=== PATIENT | female | born 1985 | race Caucasian/White ===

== ENCOUNTER 2018-09-07 10:00 | Emergency (ER) | payer MEDICAID ==
[~2018-09-07] VITALS: Ht 175.3 cm; Wt 77.3 kg
[~2018-09-07 10:00] MED LIST: ACET-3068 PO; CLIN300C97 PO; HYDR-3965 PO; PENI500T2 PO
[2018-09-07 10:04] VITALS: BP 124/91
--- NOTE | 2018-09-07 10:13 | NUR ---
pt is 33 yo female c/o sore throat, dizziness, generalized body ache, headache x1 day, rt flank and pain with urination x2 days, pt is GCS 15, resp even and unlabored, skin p/w/d, waiting to be evaluated by provider
[2018-09-07 10:37] LABS: CLARITY,URINE CLEAR (Clear); COLOR,URINE YELLOW (Yellow); GLUCOSE, URINE NEGATIVE (Neg); KETONES,URINE NEGATIVE (Neg); LEUKOCYTE ESTERASE ,URINE NEGATIVE (Neg); NITRITES, URINE NEGATIVE (Neg); OCCULT BLOOD,URINE LARGE (Neg); PROTEIN,URINE NEGATIVE (Neg); URINE HCG NEGATIVE (NEG); UROBILINOGEN,URINE 0.2 E.U/dL (0.2-1.0)
[2018-09-07 10:38] LABS: UA COLLECTION TYPE CLN CATCH MIDSTREAM
[2018-09-07 10:46] LABS: MUCUS STRANDS FEW /LPF (Neg); SQUAMOUS EPITHELIAL CELL,UR MANY /LPF (FEW)
[2018-09-07 10:48] LABS: WBC,URINE 0-4 /HPF (0-4)
[2018-09-07 10:49] LABS: BACTERIA,URINE 1+ /HPF (Neg)
--- NOTE | 2018-09-07 11:32 | NUR ---
RAPID STREP SENT TO LAB
== END 2018-09-07 12:13 | disposition home or self-care (01) ==
LOC: ER 10:03
DX: B34.9 Viral infection, unspecified (principal); G43.909 Migraine, unspecified, not intractable, without status migrainosus; Z79.2 Long term (current) use of antibiotics; Z79.899 Other long term (current) drug therapy
CPT/HCPCS: 81001; 81025; 87081; 87880; 99283

== ENCOUNTER 2019-02-02 22:21 | Emergency (ER) | payer MEDICAID ==
[~2019-02-02] VITALS: Ht 175.3 cm; Wt 78.1 kg
[2019-02-02 22:22] VITALS: BP 145/100
[2019-02-02] MEDS ORDERED: AMOX500C2 PO (23:41)
== END 2019-02-02 23:56 | disposition home or self-care (01) ==
LOC: ER 22:22
DX: H74.8X2 Other specified disorders of left middle ear and mastoid (principal); R05 Cough; G43.909 Migraine, unspecified, not intractable, without status migrainosus; F10.99 Alcohol use, unspecified with unspecified alcohol-induced disorder; Z79.899 Other long term (current) drug therapy; Y90.9 Presence of alcohol in blood, level not specified
CPT/HCPCS: 99283